=== PATIENT | male | born 1980 | race Caucasian/White ===

== ENCOUNTER → 2019-05-09 | Outpatient (CLI) | payer MEDICAID ==
[2019-05-09 09:30] LABS: ALT/SGPT 27 U/L (12-78); BILIRUBIN,TOTAL 0.5 MG/DL (0.2-1.0); BLOOD UREA NITROGEN 18 MG/DL (7-18); CALCIUM LEVEL 8.7 MG/DL (8.5-10.1); CARBON DIOXIDE LEVEL 29 MEQ/L (21-32); CHLORIDE LEVEL 109 MEQ/L (98-107); CHOLESTEROL LEVEL 205 MG/DL (<200); CHOLESTEROL RISK RATIO 3.253 (<5); CREATININE FOR GFR 0.88 MG/DL (0.70-1.30); GLOMERULAR FILTRATION RATE > 60.0 (>60); GLUCOSE, FASTING 83 MG/DL (70-100); HDL CHOLESTEROL 63 MG/DL (>40); LDL CHOLESTEROL 122 MG/DL (<100); NON-HDL-C 142 MG/DL; POTASSIUM SERUM 4.2 MEQ/L (3.5-5.1); SODIUM LEVEL 142 MEQ/L (136-145); TOTAL PROTEIN 7.3 GM/DL (6.4-8.2); TRIGLYCERIDES LEVEL 98 MG/DL (<150)
== END ==
LOC: M LAB 07:56
PROVIDERS: ATTEND Family Medicine
DX: Z13.220 Encounter for screening for lipoid disorders (principal)

== ENCOUNTER 2019-05-26 13:40 | Emergency (ER) | payer MEDICAID ==
[~2019-05-26] VITALS: Ht 172.7 cm; Wt 80.6 kg
[2019-05-26] MEDS ORDERED: DIVA250T67 (13:48)
[2019-05-26] MEDS ORDERED: ZYPR5TAB2 (13:48)
[2019-05-26 13:53] VITALS: BP 130/71
== END 2019-05-26 17:42 | disposition left against medical advice (07) ==
LOC: M ED 13:40
DX: Z53.21 Procedure and treatment not carried out due to patient leaving prior to being seen by health care provider (principal)

== ENCOUNTER 2019-08-24 01:29 | Emergency (ER) | payer MEDICAID, OTHER ==
[~2019-08-24] VITALS: Ht 172.7 cm; Wt 89.8 kg
[~2019-08-24 01:29] MED LIST: DIVA250T67; ZYPR5TAB2
[2019-08-24] MEDS ORDERED: DEPA1TAB3 PO (01:36)
[2019-08-24] MEDS ORDERED: ADDE10TA PO (01:36)
[2019-08-24] MEDS ORDERED: RISP0.5T21 PO (01:36)
[2019-08-24] MEDS ORDERED: KETOROLAC 30 MG/ML 1ML VIAL IV ONE (02:00)
[2019-08-24 02:02] LABS: APPEARANCE, URINE CLEAR (CLEAR); BACTERIA, URINE AUTO NEGATIVE (NEGATIVE); BILIRUBIN, URINE AUTO NEGATIVE (NEGATIVE); BLOOD, URINE BLOOD NEGATIVE (NEGATIVE); COLOR, URINE STRAW (YELLOW); GLUCOSE, URINE (UA) AUTO NEGATIVE (NEGATIVE); KETONE, URINE AUTO NEGATIVE (NEGATIVE); LEUKOCYTE ESTERASE, URINE AUTO NEGATIVE (NEGATIVE); NITRITE, URINE AUTO NEGATIVE (NEGATIVE); PROTEIN, URINE AUTO NEGATIVE (NEGATIVE); RBC, URINE AUTO 0 /HPF (0-3); SQUAMOUS EPITHELIAL CELL UR AU 0 /HPF (0-6); UROBILINOGEN, URINE AUTO 0.2 mg/dL (0.0-2.0); WBC, URINE AUTO 1 /HPF (0-3)
[2019-08-24 02:05] LABS: BASO # 0.1 10^3/uL (0.0-0.2); BASO % 0.8 % (0.0-1.0); EOS # 0.3 10^3/uL (0.0-0.5); EOS % 2.7 % (0.0-3.0); HEMOGLOBIN 16.9 g/dl (13.5-17.5); LYMPH # 3.5 10^3/uL (1.5-5.0); LYMPH % 29.9 % (24.0-44.0); MEAN CORPUSCULAR HEMOGLOBIN 31.9 pg (27.0-33.0); MEAN CORPUSCULAR HGB CONC 34.5 g/dl (32.0-36.5); MEAN CORPUSCULAR VOLUME 92.6 fl (80.0-96.0); MONO # 1.4 10^3/uL (0.0-0.8); MONO % 11.8 % (0.0-5.0); NEUTROPHILS # 6.4 10^3/uL (1.5-8.5); PLATELET COUNT, AUTOMATED 215 10^3/uL (150-450); RED BLOOD COUNT 5.29 10^6/uL (4.30-6.10); WHITE BLOOD COUNT 11.8 10^3/uL (4.0-10.0)
[2019-08-24 02:14] LABS: BLOOD UREA NITROGEN 10 MG/DL (7-18); CALCIUM LEVEL 8.5 MG/DL (8.5-10.1); CARBON DIOXIDE LEVEL 28 MEQ/L (21-32); CHLORIDE LEVEL 107 MEQ/L (98-107); CREATININE FOR GFR 0.92 MG/DL (0.70-1.30); GLOMERULAR FILTRATION RATE > 60.0 (>60); GLUCOSE, FASTING 101 MG/DL (70-100); POTASSIUM SERUM 4.3 MEQ/L (3.5-5.1); SODIUM LEVEL 140 MEQ/L (136-145)
[2019-08-24 03:25] VITALS: BP 129/87
== END 2019-08-24 03:29 | disposition home or self-care (01) ==
LOC: M ED 01:29
DX: M54.5 Low back pain (principal); F33.9 Major depressive disorder, recurrent, unspecified; Z79.899 Other long term (current) drug therapy; F12.20 Cannabis dependence, uncomplicated
CPT/HCPCS: 80048; 81001; 85025; 96374; 99284; J1885

== ENCOUNTER → 2019-09-13 | Outpatient (CLI) | payer OTHER, MEDICAID ==
[~2019-09-13] MED LIST changes: +ADDE10TA PO; +DEPA1TAB3 PO; +RISP0.5T21 PO
[2019-09-13 11:47] LABS: HEMATOCRIT 50.1 % (42.0-52.0); HEMOGLOBIN 17.4 g/dl (13.5-17.5); MEAN CORPUSCULAR HGB CONC 34.7 g/dl (32.0-36.5); MEAN CORPUSCULAR VOLUME 92.3 fl (80.0-96.0); PLATELET COUNT, AUTOMATED 244 10^3/uL (150-450); RED BLOOD COUNT 5.43 10^6/uL (4.30-6.10); WHITE BLOOD COUNT 9.2 10^3/uL (4.0-10.0)
[2019-09-13 12:07] LABS: ALBUMIN 3.9 GM/DL (3.2-5.2); ALT/SGPT 25 U/L (12-78); BILIRUBIN,TOTAL 0.3 MG/DL (0.2-1.0); BLOOD UREA NITROGEN 17 MG/DL (7-18); CARBON DIOXIDE LEVEL 30 MEQ/L (21-32); CHLORIDE LEVEL 107 MEQ/L (98-107); CREATININE FOR GFR 1.24 MG/DL (0.70-1.30); GLOMERULAR FILTRATION RATE > 60.0 (>60); GLUCOSE, FASTING 89 MG/DL (70-100); POTASSIUM SERUM 4.4 MEQ/L (3.5-5.1); SODIUM LEVEL 143 MEQ/L (136-145); TOTAL PROTEIN 7.6 GM/DL (6.4-8.2)
[2019-09-16 08:08] LABS: HEPATITIS C QUANTITATION HCV Not Detected IU/mL (.)
== END ==
LOC: M LAB 10:28
PROVIDERS: ATTEND Family Medicine
DX: B18.2 Chronic viral hepatitis C (principal)

== ENCOUNTER → 2020-04-10 | Outpatient (REF) | payer OTHER, MEDICAID | LOC: M SFHCPLAZ 16:57 | PROVIDERS: ATTEND Family Medicine | DX: L02.91 Cutaneous abscess, unspecified (principal) ==

== ENCOUNTER → 2020-06-09 | Outpatient (CLI) | payer SELFPAY | LOC: M LABSMTC 15:09 | PROVIDERS: ATTEND Pediatrics | DX: Z11.52 Encounter for screening for COVID-19 (principal) ==

== ENCOUNTER → 2020-09-03 | Outpatient (REF) | payer OTHER | LOC: M SFHCPLAZ 12:04 | PROVIDERS: ATTEND Family Medicine | DX: F43.10 Post-traumatic stress disorder, unspecified (principal); R45.0 Nervousness ==

== ENCOUNTER → 2020-09-05 | Outpatient (CLI) | payer OTHER ==
[2020-09-05 13:40] LABS: ALT/SGPT 14 U/L (12-78); BILIRUBIN,TOTAL 0.3 MG/DL (0.2-1.0); BLOOD UREA NITROGEN 11 MG/DL (7-18); CALCIUM LEVEL 9.1 MG/DL (8.5-10.1); CARBON DIOXIDE LEVEL 24 MEQ/L (21-32); CHLORIDE LEVEL 110 MEQ/L (98-107); CHOLESTEROL LEVEL 155 MG/DL (<200); CHOLESTEROL RISK RATIO 3.163 (<5); CREATININE FOR GFR 0.89 MG/DL (0.70-1.30); GLOMERULAR FILTRATION RATE > 60.0 (>60); GLUCOSE, FASTING 88 MG/DL (70-100); HDL CHOLESTEROL 49 MG/DL (>40); LDL CHOLESTEROL 77 MG/DL (<100); NON-HDL-C 106 MG/DL; POTASSIUM SERUM 4.7 MEQ/L (3.5-5.1); SODIUM LEVEL 140 MEQ/L (136-145); THYROID STIMULATING HORMONE 0.578 uIU/ML (0.358-3.740); TOTAL PROTEIN 7.7 GM/DL (6.4-8.2); TRIGLYCERIDES LEVEL 143 MG/DL (<150)
== END ==
LOC: M WUC 09:57
PROVIDERS: ATTEND Family Medicine
DX: F43.10 Post-traumatic stress disorder, unspecified (principal); R45.0 Nervousness

== ENCOUNTER → 2020-10-09 | Outpatient (CLI) | payer OTHER, MEDICAID ==
[2020-10-09 17:44] LABS: ALT/SGPT 20 U/L (12-78); BILIRUBIN,DIRECT < 0.1 MG/DL (0.0-0.2); BILIRUBIN,TOTAL 0.2 MG/DL (0.2-1.0); TOTAL PROTEIN 7.7 GM/DL (6.4-8.2); VALPROIC ACID (DEPAKOTE) 41.6 UG/ML (50.0-100.0)
== END ==
LOC: M PLALAB 15:42
PROVIDERS: ATTEND Psychiatry & Neurology Psychiatry
DX: F43.10 Post-traumatic stress disorder, unspecified (principal); F31.9 Bipolar disorder, unspecified; F33.1 Major depressive disorder, recurrent, moderate; F12.20 Cannabis dependence, uncomplicated; F90.2 Attention-deficit hyperactivity disorder, combined type

== ENCOUNTER → 2021-08-20 | Outpatient (CLI) | payer OTHER, MEDICAID ==
[2021-08-20 15:52] LABS: ALBUMIN 3.9 GM/DL (3.2-5.2); ALT/SGPT 35 U/L (12-78); BILIRUBIN,TOTAL 0.3 MG/DL (0.2-1.0); BLOOD UREA NITROGEN 10 MG/DL (7-18); CALCIUM LEVEL 9.3 MG/DL (8.5-10.1); CARBON DIOXIDE LEVEL 27 MEQ/L (21-32); CHLORIDE LEVEL 107 MEQ/L (98-107); CHOLESTEROL LEVEL 203 MG/DL (<200); CREATININE FOR GFR 0.91 MG/DL (0.70-1.30); GLOMERULAR FILTRATION RATE > 60.0 (>60); GLUCOSE, FASTING 88 MG/DL (70-100); HDL CHOLESTEROL 51 MG/DL (>40); LDL CHOLESTEROL 105 MG/DL (<100); NON-HDL-C 152 MG/DL; POTASSIUM SERUM 4.4 MEQ/L (3.5-5.1); SODIUM LEVEL 139 MEQ/L (136-145); TOTAL PROTEIN 7.6 GM/DL (6.4-8.2); TRIGLYCERIDES LEVEL 233 MG/DL (<150)
== END ==
LOC: M PLALAB 12:53
PROVIDERS: ATTEND Student in an Organized Health Care Education/Training Program
DX: F41.9 Anxiety disorder, unspecified (principal)

== ENCOUNTER 2022-06-01 15:59 | Inpatient (IN) | payer MEDICAID, OTHER ==
[~2022-06-01] VITALS: Ht 175.3 cm; Wt 107.1 kg
[~2022-06-01 15:59] MED LIST changes: -DIVA250T67; +DIVA250T67 PO
[2022-06-01] MEDS ORDERED: NS 1,000 ML IV ONE ×2 (16:30→18:30)
[2022-06-01] MEDS ORDERED: ONDANSETRON 4MG 2ML VIAL IV ONE (16:30)
[2022-06-01] MEDS ORDERED: MORPHINE 4 MG/ML 1ML VIAL IV ONE (16:30)
[2022-06-01 17:34] LABS: BASO # 0.1 10^3/uL (0.0-0.2); BASO % 0.4 % (0.0-1.0); EOS # 0.1 10^3/uL (0.0-0.5); EOS % 0.6 % (0.0-3.0); HEMATOCRIT 44.1 % (42.0-52.0); HEMOGLOBIN 15.4 g/dl (13.5-17.5); LYMPH # 1.3 10^3/uL (1.5-5.0); LYMPH % 6.6 % (24.0-44.0); MEAN CORPUSCULAR HEMOGLOBIN 31.5 pg (27.0-33.0); MEAN CORPUSCULAR HGB CONC 34.9 g/dl (32.0-36.5); MEAN CORPUSCULAR VOLUME 90.2 fl (80.0-96.0); NEUTROPHILS # 15.7 10^3/uL (1.5-8.5); NEUTROPHILS % 82.8 % (36.0-66.0); PLATELET COUNT, AUTOMATED 235 10^3/uL (150-450); RED BLOOD COUNT 4.89 10^6/uL (4.30-6.10)
[2022-06-01 17:35] LABS: INR 0.93; PROTHROMBIN TIME 12.7 SECONDS (12.5-14.5)
[2022-06-01 17:36] LABS: PARTIAL THROMBOPLASTIN TIME 25.2 SECONDS (24.8-34.2)
[2022-06-01 17:41] LABS: ALBUMIN 3.8 G/DL (3.2-5.2); BILIRUBIN,DIRECT 0.2 MG/DL (<0.4); BILIRUBIN,TOTAL 0.4 MG/DL (0.3-1.2); C REACTIVE PROTEIN QUANTITATIV 2.6 MG/DL (<1.0)
[2022-06-01 17:57] LABS: MONO # 1.7 10^3/uL (0.0-0.8)
[2022-06-01 17:58] LABS: ERYTHROCYTE SEDIMENTATION RATE 17 mm/hr (0-15)
[2022-06-01] MEDS ORDERED: RIVAROXABAN 10MG TAB (XARELTO) PO SCH (18:00)
[2022-06-01] MEDS ORDERED: PIPERACILLIN/TAZOBACTAM SOD 3.375 GM in D5W MINI-BAG PLUS 50 ML IV ONE (18:25)
[2022-06-01] MEDS ORDERED: VANCOMYCIN HCL 2,000 MG in D5W 500 ML IV ONE (18:25)
[2022-06-01] MEDS ORDERED: PROP10TA56 PO (18:33)
[2022-06-01] MEDS ORDERED: SERO200T PO (18:33)
[2022-06-01] MEDS ORDERED: RISP-9 PO (18:33)
[2022-06-01] MEDS ORDERED: KLON1TAB PO (18:33)
[2022-06-01] MEDS ORDERED: INVE234I IM (18:33)
[2022-06-01] MEDS ORDERED: PRAZ2CAP PO (18:33)
[2022-06-01] MEDS ORDERED: DIVA1TAB48 PO (18:33)
[2022-06-01] MEDS ORDERED: HOME MED LIST COMPLETE! XX SCH (18:35)
[2022-06-01] MEDS: VANCOMYCIN HCL 1,000 MG, VIAL MATE ADAPTER 1 EACH in NS 250 ML IV ONE ×2 (18:45→22:51)
[2022-06-01] MEDS ORDERED: VANCOMYCIN HCL 1,000 MG, VIAL MATE ADAPTER 1 EACH in NS 250 ML IV SCH (18:55)
[2022-06-01] MEDS ORDERED: ACETAMINOPHEN TAB 650MG DOSE (2X325MG) PO PRN (18:55)
[2022-06-01] MEDS ORDERED: PIPERACILLIN/TAZOBACTAM SOD 3.375 GM in D5W MINI-BAG PLUS 50 ML IV SCH (18:55)
[2022-06-01] MEDS ORDERED: PERCOCET 5MG/325MG TAB PO PRN ×2 (18:55)
[2022-06-01] MEDS ORDERED: VANCOMYCIN HCL 1,000 MG, VIAL MATE ADAPTER 1 EACH in NS 250 ML IV ONE (19:45)
[2022-06-01 19:50] LABS: RSV AMPLIFICATION NEGATIVE (NEGATIVE)
[2022-06-01 21:17] VITALS: BP 133/91
[2022-06-01 22:22] VITALS: BP 143/89
[2022-06-01] MEDS: NS 1,000 ML IV SCH (22:51)
[2022-06-01] MEDS: DIVALPROEX 250MG TAB PO SCH (23:04)
[2022-06-01] MEDS: PRAZOSIN 1 MG CAP PO SCH (23:04)
[2022-06-01] MEDS: QUEtiapine FUMARATE 200 MG TAB PO SCH (23:05)
[2022-06-01] MEDS: risperiDONE 2 MG TAB PO SCH (23:05)
[2022-06-01] MEDS: PROPRANOLOL 10 MG TAB PO SCH (23:05)
[2022-06-02] MEDS: PIPERACILLIN/TAZOBACTAM SOD 4.5 GM in D5W MINI-BAG PLUS 50 ML IV SCH ×4 (01:02→22:16)
[2022-06-02] MEDS: VANCOMYCIN HCL 750 MG, VIAL MATE ADAPTER 1 EACH in D5W 250 ML IV SCH ×2 (05:52→17:36)
[2022-06-02 06:00] VITALS: BP 114/69
[2022-06-02 06:28] LABS: HEMATOCRIT 39.2 % (42.0-52.0); HEMOGLOBIN 13.5 g/dl (13.5-17.5); MEAN CORPUSCULAR HEMOGLOBIN 31.8 pg (27.0-33.0); MEAN CORPUSCULAR HGB CONC 34.4 g/dl (32.0-36.5); MEAN CORPUSCULAR VOLUME 92.5 fl (80.0-96.0); PLATELET COUNT, AUTOMATED 220 10^3/uL (150-450); RED BLOOD COUNT 4.24 10^6/uL (4.30-6.10); WHITE BLOOD COUNT 14.5 10^3/uL (4.0-10.0)
[2022-06-02 06:33] LABS: BLOOD UREA NITROGEN 9 MG/DL (9-23); CALCIUM LEVEL 8.4 MG/DL (8.5-10.1); CARBON DIOXIDE LEVEL 28 MMOL/L (20-31); CHLORIDE LEVEL 107 MMOL/L (98-107); CREATININE FOR GFR 0.96 MG/DL (0.70-1.30); GLOMERULAR FILTRATION RATE > 60.0 (>60); GLUCOSE, FASTING 87 MG/DL (60-100); MAGNESIUM LEVEL 1.8 MG/DL (1.8-2.4); POTASSIUM SERUM 4.1 MMOL/L (3.5-5.1); SODIUM LEVEL 140 MMOL/L (136-145)
[2022-06-02 06:38] LABS: INR 1.52; PROTHROMBIN TIME 18.6 SECONDS (12.5-14.5)
[2022-06-02] MEDS: VANCOMYCIN HCL 500 MG in D5W MINI-BAG PLUS 100 ML IV SCH ×2 (06:51→20:33)
[2022-06-02] MEDS: clonazePAM 1 MG TAB PO PRN ×3 (07:57→22:14)
[2022-06-02] MEDS: DIVALPROEX 250MG TAB PO SCH ×3 (07:57→22:15)
[2022-06-02] MEDS: PROPRANOLOL 10 MG TAB PO SCH ×3 (07:58→22:17)
[2022-06-02] MEDS: risperiDONE 2 MG TAB PO SCH ×3 (07:58→22:15)
[2022-06-02 08:00] VITALS: BP 117/71
[2022-06-02] MEDS ORDERED: LORazepam 2 MG TAB PO PRN (08:05)
[2022-06-02] MEDS ORDERED: PROHANCE 279.3MG/ML 15ML VIAL As Ordered ONE (10:09)
[2022-06-02] MEDS ORDERED: PROHANCE 279.3MG/ML 5ML VIAL As Ordered ONE (10:09)
[2022-06-02] MEDS: MULTIVITAMINS/MINERALS THERAP 1 TAB PO SCH (13:29)
[2022-06-02] MEDS: FOLIC ACID 1MG TAB PO SCH (13:29)
[2022-06-02] MEDS: THIAMINE 100 MG TAB PO SCH ×2 (13:29→22:16)
[2022-06-02 14:00] VITALS: BP 118/76
[2022-06-02] MEDS: NS 1,000 ML IV SCH (15:12)
[2022-06-02 22:00] VITALS: BP 116/77
[2022-06-02] MEDS: QUEtiapine FUMARATE 200 MG TAB PO SCH (22:15)
[2022-06-02] MEDS: PRAZOSIN 1 MG CAP PO SCH (22:17)
[2022-06-03] VITALS (8 sets, daily range): BP systolic 102–151; BP diastolic 56–91
[2022-06-03] MEDS: PIPERACILLIN/TAZOBACTAM SOD 4.5 GM in D5W MINI-BAG PLUS 50 ML IV SCH (03:26)
[2022-06-03] MEDS: VANCOMYCIN HCL 750 MG, VIAL MATE ADAPTER 1 EACH in D5W 250 ML IV SCH (06:13)
[2022-06-03 06:47] LABS: BASO # 0.1 10^3/uL (0.0-0.2); BASO % 0.5 % (0.0-1.0); EOS # 0.3 10^3/uL (0.0-0.5); EOS % 2.6 % (0.0-3.0); LYMPH # 1.9 10^3/uL (1.5-5.0); MEAN CORPUSCULAR HGB CONC 34.1 g/dl (32.0-36.5); MEAN CORPUSCULAR VOLUME 90.9 fl (80.0-96.0); MONO # 1.1 10^3/uL (0.0-0.8); NEUTROPHILS # 6.2 10^3/uL (1.5-8.5); PLATELET COUNT, AUTOMATED 240 10^3/uL (150-450); RED BLOOD COUNT 4.51 10^6/uL (4.30-6.10); WHITE BLOOD COUNT 9.6 10^3/uL (4.0-10.0)
[2022-06-03 07:22] LABS: ALBUMIN 3.1 G/DL (3.2-5.2); ALKALINE PHOSPHATASE 92 U/L (46-116); ALT/SGPT 39 U/L (7.0-40); AST/SGOT 32 U/L (<34); BILIRUBIN,TOTAL 0.7 MG/DL (0.3-1.2); BLOOD UREA NITROGEN 7 MG/DL (9-23); CALCIUM LEVEL 8.6 MG/DL (8.5-10.1); CARBON DIOXIDE LEVEL 29 MMOL/L (20-31); CHLORIDE LEVEL 106 MMOL/L (98-107); CREATININE FOR GFR 0.94 MG/DL (0.70-1.30); GLOMERULAR FILTRATION RATE > 60.0 (>60); GLUCOSE, FASTING 90 MG/DL (60-100); POTASSIUM SERUM 4.2 MMOL/L (3.5-5.1); SODIUM LEVEL 142 MMOL/L (136-145); TOTAL PROTEIN 6.1 G/DL (5.7-8.2)
[2022-06-03] MEDS ORDERED: VANCOMYCIN HCL 750 MG, VIAL MATE ADAPTER 1 EACH in D5W 250 ML IV ONE (08:00)
[2022-06-03] MEDS: MULTIVITAMINS/MINERALS THERAP 1 TAB PO SCH (08:14)
[2022-06-03] MEDS: THIAMINE 100 MG TAB PO SCH ×2 (08:14→20:08)
[2022-06-03] MEDS: DIVALPROEX 250MG TAB PO SCH ×3 (08:14→20:06)
[2022-06-03] MEDS: PROPRANOLOL 10 MG TAB PO SCH ×3 (08:15→20:06)
[2022-06-03] MEDS: FOLIC ACID 1MG TAB PO SCH (08:15)
[2022-06-03] MEDS: risperiDONE 2 MG TAB PO SCH ×3 (08:15→20:08)
[2022-06-03] MEDS: clonazePAM 1 MG TAB PO PRN (08:20)
[2022-06-03] MEDS: guaiFENesin ER 600 MG TAB PO SCH ×2 (12:36→20:07)
[2022-06-03] MEDS: DOXYCYCLINE HYCLATE 100MG TABLET PO SCH ×2 (12:37→20:08)
[2022-06-03] MEDS: AUGMENTIN 875 MG TAB PO SCH ×2 (12:37→20:08)
[2022-06-03] MEDS ORDERED: REMDESIVIR 200 MG in NS 250 ML IV ONE (15:00)
[2022-06-03] MEDS ORDERED: SODIUM CHLORIDE 0.9% INJ 10 ML SYR IV ONE (17:00)
[2022-06-03] MEDS ORDERED: ceFAZolin 2 GM/D5W 50 ML IV BAG As Ordered ONE (17:09)
[2022-06-03] MEDS: PRAZOSIN 1 MG CAP PO SCH (20:07)
[2022-06-03] MEDS: QUEtiapine FUMARATE 200 MG TAB PO SCH (20:07)
[2022-06-04 05:52] LABS: BASO # 0.1 10^3/uL (0.0-0.2); BASO % 0.7 % (0.0-1.0); EOS # 0.2 10^3/uL (0.0-0.5); EOS % 2.3 % (0.0-3.0); HEMATOCRIT 42.3 % (42.0-52.0); HEMOGLOBIN 14.6 g/dl (13.5-17.5); LYMPH # 2.3 10^3/uL (1.5-5.0); LYMPH % 26.2 % (24.0-44.0); MEAN CORPUSCULAR HEMOGLOBIN 31.3 pg (27.0-33.0); MEAN CORPUSCULAR HGB CONC 34.5 g/dl (32.0-36.5); MEAN CORPUSCULAR VOLUME 90.8 fl (80.0-96.0); MONO # 0.9 10^3/uL (0.0-0.8); MONO % 10.2 % (2.0-8.0); NEUTROPHILS # 5.3 10^3/uL (1.5-8.5); PLATELET COUNT, AUTOMATED 235 10^3/uL (150-450); RED BLOOD COUNT 4.66 10^6/uL (4.30-6.10); WHITE BLOOD COUNT 8.7 10^3/uL (4.0-10.0)
[2022-06-04 06:16] LABS: ALBUMIN 3.2 G/DL (3.2-5.2); ALKALINE PHOSPHATASE 91 U/L (46-116); ALT/SGPT 38 U/L (7.0-40); AST/SGOT 26 U/L (<34); BILIRUBIN,TOTAL 0.4 MG/DL (0.3-1.2); BLOOD UREA NITROGEN 8 MG/DL (9-23); CALCIUM LEVEL 8.9 MG/DL (8.5-10.1); CARBON DIOXIDE LEVEL 27 MMOL/L (20-31); CHLORIDE LEVEL 107 MMOL/L (98-107); CREATININE FOR GFR 0.83 MG/DL (0.70-1.30); GLOMERULAR FILTRATION RATE > 60.0 (>60); GLUCOSE, FASTING 85 MG/DL (60-100); POTASSIUM SERUM 3.9 MMOL/L (3.5-5.1); SODIUM LEVEL 141 MMOL/L (136-145); TOTAL PROTEIN 6.4 G/DL (5.7-8.2)
[2022-06-04 06:35] VITALS: BP 133/72
[2022-06-04 06:43] VITALS: BP 133/72
[2022-06-04] MEDS: guaiFENesin ER 600 MG TAB PO SCH (09:29)
[2022-06-04] MEDS: FOLIC ACID 1MG TAB PO SCH (09:30)
[2022-06-04] MEDS: AUGMENTIN 875 MG TAB PO SCH (09:30)
[2022-06-04] MEDS: THIAMINE 100 MG TAB PO SCH (09:30)
[2022-06-04] MEDS: risperiDONE 2 MG TAB PO SCH (09:30)
[2022-06-04] MEDS: DIVALPROEX 250MG TAB PO SCH (09:30)
[2022-06-04] MEDS: MULTIVITAMINS/MINERALS THERAP 1 TAB PO SCH (09:30)
[2022-06-04 09:31] VITALS: BP 112/77
[2022-06-04] MEDS: PROPRANOLOL 10 MG TAB PO SCH (09:31)
[2022-06-04] MEDS: clonazePAM 1 MG TAB PO PRN (09:33)
[2022-06-04] MEDS: DOXYCYCLINE HYCLATE 100MG TABLET PO SCH (09:33)
[2022-06-04 10:00] VITALS: BP 114/76
[2022-06-04] MEDS ORDERED: FOLI1TAB11 PO (10:33)
[2022-06-04] MEDS ORDERED: ACET-897 PO (10:33)
[2022-06-04] MEDS ORDERED: AMOX875T2 PO (10:33)
[2022-06-04] MEDS ORDERED: VITMTA PO (10:33)
[2022-06-04] MEDS ORDERED: DOXY100T PO (10:33)
[2022-06-04] MEDS ORDERED: MUCI600T31 PO (10:33)
[2022-06-04] MEDS ORDERED: THIA100TA PO (10:33)
[2022-06-04 14:00] VITALS: BP 136/85
[2022-06-04] MEDS ORDERED: REMDESIVIR 100 MG in NS 250 ML IV SCH (15:00)
[2022-06-04] MEDS ORDERED: SODIUM CHLORIDE 0.9% INJ 10 ML SYR IV SCH (16:00)
== END 2022-06-04 14:26 | disposition home or self-care (01) | DRG 383 ==
LOC: M ED 15:59 → EDBD 15:59 → M MSPAV 18:55
PROVIDERS: ADMIT Family Medicine; ATTEND Internal Medicine
PROC: 0X9J0ZZ Drainage of Right Hand, Open Approach (ICD-10-PCS; principal; 2022-06-03 16:00)
DX: L02.511 Cutaneous abscess of right hand (principal); U07.1 COVID-19; F11.20 Opioid dependence, uncomplicated; F15.20 Other stimulant dependence, uncomplicated; F20.9 Schizophrenia, unspecified; F19.20 Other psychoactive substance dependence, uncomplicated; L03.113 Cellulitis of right upper limb; F41.9 Anxiety disorder, unspecified; F32.A Depression, unspecified; Z79.899 Other long term (current) drug therapy

== ENCOUNTER 2022-06-05 13:53 | Outpatient (CLI) | payer OTHER ==
[~2022-06-05] VITALS: Ht 175.3 cm; Wt 107.1 kg
[~2022-06-05 13:53] MED LIST changes: +ACET-897 PO; +AMOX875T2 PO; +DIVA1TAB48 PO; +DOXY100T PO; +FOLI1TAB11 PO; +INVE234I IM; +KLON1TAB PO; +MUCI600T31 PO; +PRAZ2CAP PO; +PROP10TA56 PO; +RISP-9 PO; +SERO200T PO; +THIA100TA PO; +VITMTA PO
[2022-06-05 14:15] VITALS: BP 139/99
[2022-06-05] MEDS ORDERED: REMDESIVIR 100 MG in NS 250 ML IV ONE (15:00)
[2022-06-05 16:00] VITALS: BP 139/100
== END 2022-06-05 16:08 | disposition home or self-care (01) ==
LOC: M OPCLI4 13:53 → M MSPAV 13:56 → M OPCLI4 16:08
PROVIDERS: ATTEND Internal Medicine
DX: U07.1 COVID-19 (principal)
CPT/HCPCS: 96365; J0248

== ENCOUNTER → 2022-06-24 | Outpatient (CLI) | payer OTHER, MEDICAID ==
[2022-06-24 17:12] LABS: BASO # 0.1 10^3/uL (0.0-0.2); BASO % 0.6 % (0.0-1.0); EOS # 0.2 10^3/uL (0.0-0.5); EOS % 1.9 % (0.0-3.0); HEMATOCRIT 46.6 % (42.0-52.0); HEMOGLOBIN 16.2 g/dl (13.5-17.5); LYMPH # 2.5 10^3/uL (1.5-5.0); LYMPH % 31.5 % (24.0-44.0); MEAN CORPUSCULAR HEMOGLOBIN 31.8 pg (27.0-33.0); MEAN CORPUSCULAR HGB CONC 34.8 g/dl (32.0-36.5); MEAN CORPUSCULAR VOLUME 91.4 fl (80.0-96.0); MONO # 0.7 10^3/uL (0.0-0.8); MONO % 9.2 % (2.0-8.0); NEUTROPHILS # 4.4 10^3/uL (1.5-8.5); NEUTROPHILS % 56.4 % (36.0-66.0); PLATELET COUNT, AUTOMATED 242 10^3/uL (150-450); WHITE BLOOD COUNT 7.9 10^3/uL (4.0-10.0)
[2022-06-24 17:35] LABS: HEMOGLOBIN A1c 5.4 % (4.0-6.0)
[2022-06-24 17:39] LABS: ALBUMIN 4.1 G/DL (3.2-5.2); ALKALINE PHOSPHATASE 82 U/L (46-116); ALT/SGPT 26 U/L (7.0-40); AST/SGOT 31 U/L (<34); BILIRUBIN,TOTAL 0.5 MG/DL (0.3-1.2); BLOOD UREA NITROGEN 11 MG/DL (9-23); CALCIUM LEVEL 9.2 MG/DL (8.5-10.1); CARBON DIOXIDE LEVEL 26 MMOL/L (20-31); CHLORIDE LEVEL 104 MMOL/L (98-107); CHOLESTEROL LEVEL 169 MG/DL (<200); CHOLESTEROL RISK RATIO 3.45 (<5); CREATININE FOR GFR 0.83 MG/DL (0.70-1.30); GLOMERULAR FILTRATION RATE > 60.0 (>60); GLUCOSE, FASTING 97 MG/DL (60-100); HDL CHOLESTEROL 48.9 MG/DL (>40); LDL CHOLESTEROL 100.9 MG/DL (<100); NON-HDL-C 120.1 MG/DL; POTASSIUM SERUM 3.8 MMOL/L (3.5-5.1); SODIUM LEVEL 141 MMOL/L (136-145); TOTAL PROTEIN 7.1 G/DL (5.7-8.2); TRIGLYCERIDES LEVEL 96 MG/DL (<150)
[2022-06-24 17:51] LABS: HEPATITIS B SURFACE ANTIGEN NEGATIVE (NEGATIVE)
== END ==
LOC: M PLALAB 13:55
PROVIDERS: ATTEND Student in an Organized Health Care Education/Training Program
DX: Z00.00 Encounter for general adult medical examination without abnormal findings (principal)

== ENCOUNTER → 2023-06-16 | Outpatient (REF) | payer OTHER ==
[~2023-06-16] MED LIST changes: -KLON1TAB PO; +KLON1TAB13 PO; +RISP-106 PO; -RISP-9 PO
== END ==
LOC: M SFHCPLAZ 09:53
PROVIDERS: ATTEND Family Medicine
DX: L03.90 Cellulitis, unspecified (principal)